=== PATIENT | female | born 1930 | race Caucasian/White ===

== ENCOUNTER 2016-11-08 10:04 | Emergency (ER) | payer OTHER, BC ==
[2016-11-08 10:12] VITALS: TEMP 97.5
--- NOTE | 2016-11-08 10:21 | EDPHY ---
H & P Stated Complaint: R knee to hip/thigh pain since August; seen here and w ortho; worsening now Time Seen by Provider: 11/08/16 10:09 HPI/ROS: 86-year-old female presents complaining of initially she had right knee pain that began in August of this year and more recently she complains of right anterior groin pain as well as bilateral hip pain intermittently with lower back pain. She states this pain has gradually gotten worse since August to the point where she has to limit the amount of weight-bearing she does. She was seen by an auto radiator specialist for her knee and at that time told it was likely strain or arthritis and should markedly improved within 2-6 weeks. She felt like the orthopedic doctor thought her pain and complaints were trivial. She has not followed up with that doctor despite the pain worsening. She has been unable to get an appointment with her primary care physician Dr. Sharp and has arranged an appointment with a new primary care physician in November Dr. Brink. She denies fevers or chills she denies nausea vomiting diarrhea. She denies trauma to either her knee hip or back. She denies rash swelling bruising in those areas as well. She denies loss of bowel or bladder control, she denies numbness or tingling in her extremities. Review of systems General no fever no chills no weakness HEENT no eye pain no eye discharge. No eye redness, no sore throat Respiratory no cough, no shortness of breath Cardiac no chest pain, no peripheral edema GI no abdominal pain, no diarrhea, no constipation, no nausea, no vomiting no flank pain, no hematuria, no dysuria Musculoskeletal no myalgias, positive joint pain Heme no easy bruising, no easy bleeding Endo no polyuria, no polydipsia Skin no rashes, no pruritus Neuro no syncope, no dizziness, no headaches Psych is no suicidal ideation, no homicidal ideation Source: Patient - Personal History Current Tetanus/Diphtheria Vaccine: No - Medical/Surgical History Hx Asthma: No Hx Chronic Respiratory Disease: No Hx Diabetes: No Hx Cardiac Disease: No Hx Renal Disease: No Hx Cirrhosis: No Hx Alcoholism: No Hx HIV/AIDS: No Hx Splenectomy or Spleen Trauma: No Other PMH: Hysterectomy. Reflux and esophageal strictures. Lumpectomy. Cholesterol. PAT - Family History Significant Family History: No pertinent family hx - Social History Smoking Status: Never smoked Alcohol Use: None Drug Use: None - Physical Exam Exam: 86-year-old female in no acute distress, nontoxic appearance, afebrile seated on the gurney, able to stand, able walk. Atraumatic normocephalic Extraocular muscles intact, anicteric Neck supple, no JVD Lungs clear to auscultation bilaterally Heart regular rate and rhythm Abdomen nondistended bowel sounds present soft nontender Extremities no cyanosis clubbing or edema Tenderness to palpation in right inguinal crease anteriorly, able to elicit pain with external rotation of hip No ecchymosis, no swelling, no rash Back-no step-offs, no focal tenderness, mild paralumbar tenderness right greater than left Right knee-full range of motion negative anterior posterior drawer, no focal tenderness Constitutional: Initial Vital Signs Temperature (C) 36.4 C 11/08/16 10:05 Heart Rate 80 11/08/16 10:05 Respiratory Rate 20 11/08/16 10:05 Blood Pressure 137/74 H 11/08/16 10:05 O2 Sat (%) 97 11/08/16 10:05 O2 Delivery Mode Room Air Allergies/Adverse Reactions: No Known Allergies Allergy (Verified 11/08/16 10:12) Home Medications: Medication Instructions Recorded Atorvastatin Calcium 11/08/16 Calcium + D Soft Chewable Tab 11/08/16 Eliquis 11/08/16 Metoprolol Tartrate 11/08/16 Pantoprazole Sodium 11/08/16 Medical Decision Making - Diagnostics Imaging Results: Imaging Impressions Lumbar Spine X-Ray 11/08/16 10:40 Impression: 1. 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 2. Additional findings as above. Hip X-Ray 11/08/16 10:55 Impression: 1. No visible etiology for the patient's right hip pain. 2. Severe degenerative change in the left hip. 3. Additional findings as above. ED Course/Re-evaluation: Patient seen and evaluated for history of right knee pain since August no currently no pain today, right hip pain and lower back pain. Differential diagnosis considered Osteoarthritis, sciatica, low back pain, degenerative disc disease, inflammatory arthritis Labs CBC CMP sed rate all within normal limits Specifically no elevation of sedimentation rate Right hip x-ray with pelvis negative for fracture positive degenerative disease Lumbar spine positive degenerative disease spondylolisthesis L3-L4 no evidence of osteolytic or lesions or fractures Impression Osteoarthritis Cannot rule out some component degenerative disc disease with sciatica Plan Acetaminophen Q 6 Follow up with PCP - Data Points Laboratory Results: Laboratory Results 11/08/16 10:51 11/08/16 10:51 11/08/16 11/08/16 10:51 10:51 WBC 7.07 10^3/uL 10^3/uL (3.80-9.50) RBC 4.69 10^6/uL 10^6/uL (4.18-5.33) Hgb 14.4 g/dL g/dL (12.6-16.3) Hct 43.3 % % (38.0-47.0) MCV 92.3 fL fL (81.5-99.8) MCH 30.7 pg pg (27.9-34.1) MCHC 33.3 g/dL g/dL (32.4-36.7) RDW 13.4 % % (11.5-15.2) Plt Count 321 10^3/uL 10^3/uL (150-400) MPV 10.2 fL fL (8.7-11.7) Neut % (Auto) 71.5 % % (39.3-74.2) Lymph % (Auto) 17.0 % % (15.0-45.0) [place] % (Auto) 8.1 % % (4.5-13.0) Eos % (Auto) 2.0 % % (0.6-7.6) Baso % (Auto) 1.3 % % (0.3-1.7) Nucleat RBC Rel Count 0.0 % % (0.0-0.2) Absolute Neuts (auto) 5.06 10^3/uL 10^3/uL (1.70-6.50) Absolute Lymphs (auto) 1.20 10^3/uL 10^3/uL (1.00-3.00) Absolute Monos (auto) 0.57 10^3/uL 10^3/uL (0.30-0.80) Absolute Eos (auto) 0.14 10^3/uL 10^3/uL (0.03-0.40) Absolute Basos (auto) 0.09 10^3/uL 10^3/uL (0.02-0.10) Absolute Nucleated RBC 0.00 10^3/uL 10^3/uL (0-0.01) Immature Gran % 0.1 % % (0.0-1.1) Immature Gran # 0.01 10^3/uL 10^3/uL (0.00-0.10) ESR 29 MM/HR MM/HR (0-30) Sodium 142 mEq/L mEq/L (134-144) Potassium 4.5 mEq/L mEq/L (3.5-5.2) Chloride 105 mEq/L mEq/L (97-110) Carbon Dioxide 22 mEq/l mEq/l (22-31) Anion Gap 15 mEq/L mEq/L (8-16) BUN 12 mg/dL mg/dL (7-23) Creatinine 0.7 mg/dL mg/dL (0.6-1.0) Estimated GFR > 60 Glucose 89 mg/dL mg/dL (70-100) Calcium 9.1 mg/dL mg/dL (8.5-10.4) Total Bilirubin 0.8 mg/dL mg/dL (0.1-1.4) AST 27 IU/L IU/L (14-46) ALT 29 IU/L IU/L (9-52) Alkaline Phosphatase 186 IU/L H IU/L (38-126) Total Protein 7.3 g/dL g/dL (6.3-8.2) Albumin 3.8 g/dL g/dL (3.5-5.0) Departure - Departure Disposition: Home, Routine, Self-Care Clinical Impression: Osteoarthritis (arthritis due to wear and tear of joints), Low back pain Condition: Good Instructions: Osteoarthritis (ED), Degenerative Disc Disease (ED) Additional Instructions: You may take extra-strength acetaminophen, 2 capsules, every 6 hours as needed for pain. Acetaminophen is also called Tylenol. Referrals: Diomedes Brink, DO [Primary Care Provider] - As per Instructions
[2016-11-08 10:59] LABS: % IMMATURE GRANULYOCYTES 0.1 % (0.0-1.1); ABSOLUTE IMMATURE GRANULOCYTES 0.01 10^3/uL (0.00-0.10); ADD DIFF? NO; ADD MORPH? NO; ADD SCAN? NO; ATYPICAL LYMPHOCYTE FLAG 0 (0-99); FRAGMENT RBC FLAG 0 (0-99); HEMATOCRIT 43.3 % (38.0-47.0); HEMOGLOBIN 14.4 g/dL (12.6-16.3); LEFT SHIFT FLG 0 (0-99); LIPEMIA HEMOLYSIS FLAG 80 (0-99); MEAN CELL HEMOGLOBIN 30.7 pg (27.9-34.1); MEAN CELL HEMOGLOBIN CONCENTR. 33.3 g/dL (32.4-36.7); MEAN CELL VOLUME 92.3 fL (81.5-99.8); MEAN PLATELET VOLUME 10.2 fL (8.7-11.7); PLATELET CLUMPS FLAG 0 (0-99); PLATELET COUNT 321 10^3/uL (150-400); RED BLOOD CELL COUNT 4.69 10^6/uL (4.18-5.33); RED CELL DISTRIBUTION WIDTH 13.4 % (11.5-15.2)
[2016-11-08 11:10] LABS: SEDIMENTATION RATE 29 MM/HR (0-30)
[2016-11-08 11:15] LABS: ALANINE AMINOTRANSFERASE 29 IU/L (9-52); ALBUMIN 3.8 g/dL (3.5-5.0); ALKALINE PHOSPHATASE 186 IU/L (38-126); ANION GAP 15 mEq/L (8-16); ASPARTATE AMINOTRANSFERASE 27 IU/L (14-46); BILIRUBIN,TOTAL 0.8 mg/dL (0.1-1.4); CALCIUM 9.1 mg/dL (8.5-10.4); CARBON DIOXIDE 22 mEq/l (22-31); CHLORIDE 105 mEq/L (97-110); CREATININE 0.7 mg/dL (0.6-1.0); GLOMERULAR FILTRATION RATE > 60; GLUCOSE 89 mg/dL (70-100); POTASSIUM 4.5 mEq/L (3.5-5.2); SODIUM 142 mEq/L (134-144); TOTAL PROTEIN 7.3 g/dL (6.3-8.2)
[2016-11-08 12:49] VITALS: BP 144/86; PULSE 85; RESP 16; O2SAT 96
== END 2016-11-08 12:49 | disposition home or self-care (01) ==
LOC: CED 10:04
DX: M17.9 Osteoarthritis of knee, unspecified (principal); M54.5 Low back pain
CPT/HCPCS: 72100-PO; 73502-PO; 80053-PO; 85025-PO; 85652-PO

== ENCOUNTER → 2017-04-21 | Outpatient (CLI) | payer OTHER, BC | LOC: BMCIMAGING 11:57 | PROVIDERS: ATTEND Surgery | DX: Z12.31 Encounter for screening mammogram for malignant neoplasm of breast (principal); Z86.000 Personal history of in-situ neoplasm of breast | CPT/HCPCS: G0202 ==

== ENCOUNTER → 2018-04-23 | Outpatient (CLI) | payer OTHER, BC | LOC: BMCIMAGING 11:39 | PROVIDERS: ATTEND Surgery | DX: Z12.31 Encounter for screening mammogram for malignant neoplasm of breast (principal); Z86.000 Personal history of in-situ neoplasm of breast ==

== ENCOUNTER → 2018-12-03 | Outpatient (CLI) | payer OTHER, BC | LOC: FIMAGING 08:00 ==